=== PATIENT | female | born 1990 | race Caucasian/White ===

== ENCOUNTER 2017-10-06 21:48 | Emergency (ER) | payer OTHER ==
[~2017-10-06] VITALS: Ht 160 cm; Wt 54.4 kg
[~2017-10-06 21:48] MED LIST: ABAT250V; ALBU.083IS IH; ALBU90OI; BENZ100A PO; BIRTH CONTROL; BUDE32NIS; CYCL10 PO; Cephalexin500 MG PO; Cleocin HCl300 MG PO; FLUSAL1005; FLUSAL2505 IH; FLUT.05NI; HYDACE5 PO; IBUP800 PO; LOPE2C PO; MONT5TCH; MULVITMINE PO; NAPR500 PO; OMEP20ER PO; OXYACE5T PO; PROM25 PO; PYRI50 PO; Pepcid20 MG PO; RANI150; RXCODACESY PO; SERT25 PO; Verotin-Gr Cap1 EACH PO; ZITHROMAX; Zithromax250 MG PO; Zofran Odt4 MG SL; [UNRECOGNIZED DRUG - OTHER]
[2017-10-06] MEDS ORDERED: Sudogest30 MG PO (22:23)
[2017-10-06] MEDS ORDERED: DEXT30SU PO (22:23)
[2017-10-06] MEDS ORDERED: Nasonex17 GM (22:23)
== END 2017-10-06 22:34 | disposition home or self-care (01) ==
LOC: ER 21:48
DX: R05 Cough (principal); Z88.0 Allergy status to penicillin; Z87.891 Personal history of nicotine dependence
CPT/HCPCS: 99283

== ENCOUNTER → 2017-12-28 | Outpatient (CLI) | payer OTHER ==
[~2017-12-28] MED LIST changes: +DEXT30SU PO; +Nasonex17 GM; +Sudogest30 MG PO
[2017-12-28 12:52] LABS: BASOPHILS ABSOLUTE AUTO 0.05 K/mm3 (0.00-0.23); BASOPHILS PERCENT AUTO 1 % (0-2); EOSINOPHILS ABSOLUTE AUTO 0.02 K/mm3 (0.00-0.68); EOSINOPHILS PERCENT AUTO 0 % (0-6); Hematocrit 40.4 % (33.0-51.0); IMMATURE GRAN ABSOLUTE AUTO 0.03 K/mm3 (0.00-0.10); IMMATURE GRAN PERCENT AUTO 0 % (0-1); LYMPHOCYTES ABSOLUTE AUTO 1.93 K/mm3 (0.84-5.20); LYMPHOCYTES PERCENT AUTO 21 % (21-46); MONOCYTES ABSOLUTE AUTO 0.67 K/mm3 (0.16-1.47); MONOCYTES PERCENT AUTO 7 % (4-13); Mean Corpuscular HGB 30.5 pg (26.0-34.0); Mean Corpuscular HGB Conc 34.7 g/dL (31.5-36.5); Mean Corpuscular Volume 88 fL (80-100); Mean Platelet Volume 10.1 fL (9.1-12.4); NEUTROPHILS ABSOLUTE AUTO 6.35 K/mm3 (1.96-9.15); NEUTROPHILS PERCENT AUTO 70 % (41-73); Platelet Count 291 K/mm3 (150-400); RDW Coefficient Variation 12.8 % (11.7-14.2); RDW Standard Deviation 41.1 fL (35.1-46.3); Red Blood Cell Count 4.59 M/mm3 (3.80-5.20); White Blood Cell Count 9.05 K/mm3 (4.00-11.30)
[2017-12-28 12:55] LABS: Anion Gap 14 mmol/L (6-16); Blood Urea Nitrogen 5 mg/dL (8-24); Bun/Creatinine Ratio 10.2 (12.0-20.0); CO2, Blood 23 mmol/L (21-32); Calcium, Blood 9.1 mg/dL (8.5-10.1); Chloride, Blood 103 mmol/L (98-108); Creatinine, Blood 0.49 mg/dL (0.40-1.00); Glomerular Filtration Rate >60 (60-); Glucose, Blood 73 mg/dL (70-99); Potassium, Blood 3.7 mmol/L (3.5-5.5); Sodium, Blood 140 mmol/L (136-145)
== END ==
LOC: LAB SHORT 12:45 → LAB EV 12:45
PROVIDERS: Family Medicine
DX: R11.2 Nausea with vomiting, unspecified (principal)
CPT/HCPCS: 80048; 85025

== ENCOUNTER → 2018-01-09 | Outpatient (CLI) | payer OTHER ==
[2018-01-09 11:20] LABS: Specimen Source CERVIX
[2018-01-10 05:09] LABS: Source Cervix
[2018-01-10 05:12] LABS: Source Cervix
== END ==
LOC: LAB SHORT 11:13 → LAB 11:13
PROVIDERS: Obstetrics & Gynecology
DX: Z34.81 Encounter for supervision of other normal pregnancy, first trimester (principal)
CPT/HCPCS: 87491; 87591; G0123

== ENCOUNTER 2021-04-03 04:48 | Emergency (ER) | payer OTHER ==
[~2021-04-03] VITALS: Ht 162.6 cm; Wt 48.1 kg
[2021-04-03 06:50] LABS: Calcium, Ionized (POC) 1.13 mmol/L (1.10-1.46); Chloride (POC) 106 mmol/L (98-108); Creatinine (POC) 0.4 mg/dL (0.6-1.0); Glucose (ISTAT POC) 86 mg/dL (70-99); Hemoglobin (POC) 13.9 g/dL (12.0-16.0); Potassium (POC) 3.5 mmol/L (3.5-5.5); Sodium (POC) 140 mmol/L (135-148); Total CO2 (POC) 19 mmol/L (21-32)
[2021-04-03 07:31] LABS: Source, Urine Clean Catch
[2021-04-03 07:37] LABS: Appearance, Urine Clear (Clear); Bilirubin, Urine Neg (Neg); Blood, Urine Neg (Neg); Color, Urine Yellow (P-Yellow); Glucose Qualitative, Urine Neg (Neg); Ketones, Urine 4+ (Neg); Leukocyte Esterase, Urine Neg (Neg); Nitrite, Urine Neg (Neg); Protein, Urine Neg (Neg); Specific Gravity, Urine 1.015 (1.003-1.022); Urobilinogen, Urine NORM (Normal)
[2021-04-03 07:42] LABS: BASOPHILS ABSOLUTE AUTO 0.06 K/mm3 (0.00-0.23); BASOPHILS PERCENT AUTO 0 % (0-2); EOSINOPHILS ABSOLUTE AUTO 0.01 K/mm3 (0.00-0.68); EOSINOPHILS PERCENT AUTO 0 % (0-6); Hematocrit 41.6 % (33.0-51.0); Hemoglobin 14.1 g/dL (11.5-16.0); IMMATURE GRAN ABSOLUTE AUTO 0.07 K/mm3 (0.00-0.10); IMMATURE GRAN PERCENT AUTO 0 % (0-1); LYMPHOCYTES ABSOLUTE AUTO 0.85 K/mm3 (0.84-5.20); LYMPHOCYTES PERCENT AUTO 5 % (21-46); MONOCYTES ABSOLUTE AUTO 1.82 K/mm3 (0.16-1.47); MONOCYTES PERCENT AUTO 10 % (4-13); Mean Corpuscular HGB 30.3 pg (26.0-34.0); Mean Corpuscular HGB Conc 33.9 g/dL (31.5-36.5); Mean Corpuscular Volume 89 fL (80-100); Mean Platelet Volume 10.4 fL (9.1-12.4); NEUTROPHILS ABSOLUTE AUTO 15.86 K/mm3 (1.96-9.15); NEUTROPHILS PERCENT AUTO 85 % (41-73); Platelet Count 278 K/mm3 (150-400); RDW Standard Deviation 39.5 fL (35.1-46.3); Red Blood Cell Count 4.66 M/mm3 (3.80-5.20); White Blood Cell Count 18.67 K/mm3 (4.00-11.30)
[2021-04-03 08:10] LABS: Alanine Aminotransfer (ALT/SGP 16 U/L (12-78); Albumin, Blood 3.5 g/dL (3.4-5.0); Albumin/Globulin Ratio 1.1 (0.8-1.8); Alk Phos 52 U/L (50-136); Anion Gap 8 mmol/L (6-16); Aspartate Aminotrans (AST/SGOT 13 U/L (12-37); Bilirubin, Total 0.4 mg/dL (0.1-1.0); Blood Urea Nitrogen 6 mg/dL (8-24); Bun/Creatinine Ratio 10.8 (12.0-20.0); CO2, Blood 22 mmol/L (21-32); Calcium, Blood 8.3 mg/dL (8.5-10.1); Chloride, Blood 109 mmol/L (98-108); Creatinine, Blood 0.56 mg/dL (0.40-1.00); Globulin, Blood 3.1 g/dL (2.2-4.0); Glomerular Filtration Rate >60 (60-); Glucose, Blood 85 mg/dL (70-99); Potassium, Blood 3.6 mmol/L (3.5-5.5); Sodium, Blood 139 mmol/L (136-145); Total Protein, Blood 6.6 g/dL (6.4-8.2)
[2021-04-03] MEDS ORDERED: ONDA4ODT MM (10:24)
[2021-04-03] MEDS ORDERED: Cipro250 MG PO (10:35)
== END 2021-04-03 11:02 | disposition home or self-care (01) ==
LOC: ER 04:48
PROVIDERS: Emergency Medicine
DX: K52.9 Noninfective gastroenteritis and colitis, unspecified (principal); Z88.0 Allergy status to penicillin; Z87.891 Personal history of nicotine dependence
CPT/HCPCS: 36415; 74176; 80047; 80053; 81003; 81025; 83690; 85014; 85025; 96374; 96375; 99284-25; A9270; J1885; J2405; J7030

== ENCOUNTER 2021-12-14 00:08 | Emergency (ER) | payer OTHER ==
[~2021-12-14] VITALS: Ht 157.5 cm; Wt 46.3 kg
[~2021-12-14 00:08] MED LIST changes: +Cipro250 MG PO; +ONDA4ODT MM
[2021-12-14] MEDS ORDERED: IBUP400 PO (03:24)
[2021-12-14] MEDS ORDERED: CYCL10 PO (03:24)
== END 2021-12-14 04:07 | disposition home or self-care (01) ==
LOC: ER 00:08
DX: M54.2 Cervicalgia (principal); R51.9 Headache, unspecified; R07.9 Chest pain, unspecified; Z88.0 Allergy status to penicillin; Z87.891 Personal history of nicotine dependence; V89.2XXA Person injured in unspecified motor-vehicle accident, traffic, initial encounter
CPT/HCPCS: 70450; 71260; 72125; 74177; 81025; 93005; 93010; 99284-25; Q9967

== ENCOUNTER 2022-04-25 16:16 | Emergency (ER) | payer OTHER ==
[~2022-04-25] VITALS: Ht 157.5 cm; Wt 48.5 kg
[~2022-04-25 16:16] MED LIST changes: +IBUP400 PO
[2022-04-25 17:26] LABS: Source, Urine Clean Catch
[2022-04-25 17:50] LABS: Appearance, Urine Clear (Clear); Bilirubin, Urine Neg (Neg); Blood, Urine 2+ (Neg); Color, Urine Yellow (P-Yellow); Glucose Qualitative, Urine Neg (Neg); Ketones, Urine Neg (Neg); Leukocyte Esterase, Urine Neg (Neg); Nitrite, Urine Neg (Neg); Protein, Urine Neg (Neg); Urobilinogen, Urine NORM (Normal)
[2022-04-25 18:04] LABS: Bacteria Mod /hpf; Red Blood Cells, Urine 0-2 /hpf (0-2); Squamous Epithelial Cells Rare /hpf (Few); White Blood Cells, Urine 0-2 /hpf (0-5)
== END 2022-04-25 18:38 | disposition home or self-care (01) ==
LOC: ER 16:16
PROVIDERS: Physician Assistant
DX: N93.9 Abnormal uterine and vaginal bleeding, unspecified (principal); R25.2 Cramp and spasm; Z87.891 Personal history of nicotine dependence
CPT/HCPCS: 81001; 81025; 87086; 99283

== ENCOUNTER → 2022-06-02 | Outpatient (CLI) | payer OTHER ==
[2022-06-04 03:11] LABS: CHLAMYDIA TRACHOMATIS, NAA Negative (Negative)
== END | disposition home or self-care (01) ==
LOC: LAB SHORT 10:20 → LAB 10:20
PROVIDERS: Obstetrics & Gynecology
DX: Z34.81 Encounter for supervision of other normal pregnancy, first trimester (principal)
CPT/HCPCS: 87491; 87591

== ENCOUNTER → 2022-06-10 | Outpatient (CLI) | payer OTHER ==
[2022-06-10 16:53] LABS: BASOPHILS ABSOLUTE AUTO 0.03 K/mm3 (0.00-0.23); BASOPHILS PERCENT AUTO 1 % (0-2); EOSINOPHILS ABSOLUTE AUTO 0.03 K/mm3 (0.00-0.68); EOSINOPHILS PERCENT AUTO 1 % (0-6); Hematocrit 40.6 % (33.0-51.0); Hemoglobin 14.1 g/dL (11.5-16.0); IMMATURE GRAN ABSOLUTE AUTO 0.02 K/mm3 (0.00-0.10); IMMATURE GRAN PERCENT AUTO 0 % (0-1); LYMPHOCYTES ABSOLUTE AUTO 1.84 K/mm3 (0.84-5.20); LYMPHOCYTES PERCENT AUTO 29 % (21-46); MONOCYTES ABSOLUTE AUTO 0.63 K/mm3 (0.16-1.47); MONOCYTES PERCENT AUTO 10 % (4-13); Mean Corpuscular HGB 30.8 pg (26.0-34.0); Mean Corpuscular HGB Conc 34.7 g/dL (31.5-36.5); Mean Corpuscular Volume 89 fL (80-100); Mean Platelet Volume 9.6 fL (9.1-12.4); NEUTROPHILS PERCENT AUTO 59 % (41-73); Platelet Count 235 K/mm3 (150-400); RDW Coefficient Variation 12.1 % (11.7-14.2); RDW Standard Deviation 39.6 fL (35.1-46.3); Red Blood Cell Count 4.58 M/mm3 (3.80-5.20); White Blood Cell Count 6.25 K/mm3 (4.00-11.30)
[2022-06-10 17:02] LABS: Bun/Creatinine Ratio 20.4 (12.0-20.0); Calcium, Blood 8.9 mg/dL (8.5-10.1); Creatinine, Blood 0.54 mg/dL (0.40-1.00); Potassium, Blood 4.5 mmol/L (3.5-5.5)
== END | disposition home or self-care (01) ==
LOC: LAB SHORT 16:48
PROVIDERS: Physician Assistant Surgical
DX: R10.31 Right lower quadrant pain (principal)
CPT/HCPCS: 80048; 84703; 85025

== ENCOUNTER 2023-01-22 03:35 | Inpatient (IN) | payer OTHER ==
[2023-01-22] VITALS (33 sets, daily range): BP systolic 87–136; BP diastolic 50–79
[~2023-01-22] VITALS: Ht 160 cm; Wt 65.5 kg
[2023-01-22 04:16] LABS: BASOPHILS ABSOLUTE AUTO 0.07 K/mm3 (0.00-0.23); BASOPHILS PERCENT AUTO 1 % (0-2); EOSINOPHILS ABSOLUTE AUTO 0.11 K/mm3 (0.00-0.68); EOSINOPHILS PERCENT AUTO 1 % (0-6); Hemoglobin 13.8 g/dL (11.5-16.0); IMMATURE GRAN ABSOLUTE AUTO 0.07 K/mm3 (0.00-0.10); IMMATURE GRAN PERCENT AUTO 1 % (0-1); LYMPHOCYTES ABSOLUTE AUTO 2.15 K/mm3 (0.84-5.20); LYMPHOCYTES PERCENT AUTO 15 % (21-46); MONOCYTES ABSOLUTE AUTO 1.63 K/mm3 (0.16-1.47); MONOCYTES PERCENT AUTO 11 % (4-13); Mean Corpuscular HGB 31.2 pg (26.0-34.0); Mean Corpuscular HGB Conc 35.4 g/dL (31.5-36.5); Mean Corpuscular Volume 88 fL (80-100); Mean Platelet Volume 10.4 fL (9.1-12.4); NEUTROPHILS ABSOLUTE AUTO 10.24 K/mm3 (1.96-9.15); NEUTROPHILS PERCENT AUTO 72 % (41-73); Platelet Count 254 K/mm3 (150-400); RDW Coefficient Variation 12.8 % (11.7-14.2); RDW Standard Deviation 41.8 fL (35.1-46.3); Red Blood Cell Count 4.42 M/mm3 (3.80-5.20); White Blood Cell Count 14.27 K/mm3 (4.00-11.30)
[2023-01-23 04:31] VITALS: BP 116/67
[2023-01-23 04:53] LABS: BASOPHILS ABSOLUTE AUTO 0.05 K/mm3 (0.00-0.23); BASOPHILS PERCENT AUTO 1 % (0-2); EOSINOPHILS ABSOLUTE AUTO 0.14 K/mm3 (0.00-0.68); EOSINOPHILS PERCENT AUTO 1 % (0-6); Hemoglobin 12.6 g/dL (11.5-16.0); IMMATURE GRAN ABSOLUTE AUTO 0.05 K/mm3 (0.00-0.10); IMMATURE GRAN PERCENT AUTO 1 % (0-1); LYMPHOCYTES ABSOLUTE AUTO 1.97 K/mm3 (0.84-5.20); LYMPHOCYTES PERCENT AUTO 19 % (21-46); MONOCYTES ABSOLUTE AUTO 1.35 K/mm3 (0.16-1.47); MONOCYTES PERCENT AUTO 13 % (4-13); Mean Corpuscular HGB 31.3 pg (26.0-34.0); Mean Corpuscular HGB Conc 34.1 g/dL (31.5-36.5); Mean Corpuscular Volume 92 fL (80-100); NEUTROPHILS ABSOLUTE AUTO 6.88 K/mm3 (1.96-9.15); NEUTROPHILS PERCENT AUTO 66 % (41-73); Platelet Count 221 K/mm3 (150-400); RDW Coefficient Variation 13.3 % (11.7-14.2); RDW Standard Deviation 44.8 fL (35.1-46.3); Red Blood Cell Count 4.03 M/mm3 (3.80-5.20); White Blood Cell Count 10.44 K/mm3 (4.00-11.30)
[2023-01-23 07:48] VITALS: BP 116/71
[2023-01-23 10:50] VITALS: BP 108/71
== END 2023-01-23 13:13 | disposition home or self-care (01) | DRG 807 ==
LOC: OBS 03:35 → BC 03:36 → OBS 03:58 → BC 04:02
PROVIDERS: ADMIT Obstetrics & Gynecology
PROC: 10E0XZZ Delivery of Products of Conception, External Approach (ICD-10-PCS; principal; 2023-01-22)
PROC: 3E0R3BZ Introduction of Anesthetic Agent into Spinal Canal, Percutaneous Approach (ICD-10-PCS; 2023-01-22)
PROC: 00HU33Z Insertion of Infusion Device into Spinal Canal, Percutaneous Approach (ICD-10-PCS; 2023-01-22)
DX: O99.334 Smoking (tobacco) complicating childbirth (principal); Z37.0 Single live birth; F17.210 Nicotine dependence, cigarettes, uncomplicated; Z3A.38 38 weeks gestation of pregnancy; Z88.0 Allergy status to penicillin
CPT/HCPCS: 36415; 51702; 85025; 86850; 86900; 86901; A9270; J1885; J2210; J2405; J2590; J7120

== ENCOUNTER → 2024-03-22 | Outpatient (CLI) | payer OTHER ==
[2024-03-22 11:07] LABS: BASOPHILS ABSOLUTE AUTO 0.06 K/mm3 (0.00-0.23); BASOPHILS PERCENT AUTO 2 % (0-2); EOSINOPHILS ABSOLUTE AUTO 0.04 K/mm3 (0.00-0.68); EOSINOPHILS PERCENT AUTO 1 % (0-6); Hematocrit 46.2 % (33.0-51.0); Hemoglobin 15.6 g/dL (11.5-16.0); IMMATURE GRAN PERCENT AUTO 0 % (0-1); LYMPHOCYTES ABSOLUTE AUTO 0.83 K/mm3 (0.84-5.20); LYMPHOCYTES PERCENT AUTO 21 % (21-46); MONOCYTES ABSOLUTE AUTO 0.79 K/mm3 (0.16-1.47); MONOCYTES PERCENT AUTO 20 % (4-13); Mean Corpuscular HGB 30.4 pg (26.0-34.0); Mean Corpuscular HGB Conc 33.8 g/dL (31.5-36.5); Mean Corpuscular Volume 90 fL (80-100); Mean Platelet Volume 10.1 fL (9.1-12.4); NEUTROPHILS ABSOLUTE AUTO 2.25 K/mm3 (1.96-9.15); NEUTROPHILS PERCENT AUTO 57 % (41-73); Platelet Count 207 K/mm3 (150-400); RDW Standard Deviation 42.5 fL (35.1-46.3); Red Blood Cell Count 5.14 M/mm3 (3.80-5.20); White Blood Cell Count 3.97 K/mm3 (4.00-11.30)
[2024-03-22 11:11] LABS: Bun/Creatinine Ratio 17.1 (12.0-20.0); Creatinine, Blood 0.76 mg/dL (0.40-1.00); Potassium, Blood 3.9 mmol/L (3.5-5.5)
== END | disposition home or self-care (01) ==
LOC: LAB 11:02 → LAB SHORT 11:02
PROVIDERS: Family Medicine
DX: R11.2 Nausea with vomiting, unspecified (principal)
CPT/HCPCS: 80048; 85025